=== PATIENT | male | born 1930 | race Caucasian/White ===

== ENCOUNTER 2018-03-03 12:52 | Emergency (ER) | payer OTHER ==
[~2018-03-03] VITALS: Ht 175.3 cm; Wt 77.1 kg
[2018-03-03] MEDS ORDERED: ASA81 MG (13:31)
[2018-03-03] MEDS ORDERED: TAMS0.4C (13:32)
[2018-03-03] MEDS ORDERED: VITAMINA (13:33)
[2018-03-03] MEDS ORDERED: ROSUVASTATIN CAL5 MG (13:33)
[2018-03-03] MEDS ORDERED: LISINOPRIL5 MG (13:34)
[2018-03-03] MEDS ORDERED: ESCITALOPRAM OXA5 MG (13:34)
[2018-03-03] MEDS ORDERED: AMLODIPINE BESI25 GM (13:35)
[2018-03-03] MEDS ORDERED: BTREX (13:36)
[2018-03-03] MEDS ORDERED: CLONAZEPAM1 M1 (13:36)
[2018-03-03] MEDS ORDERED: BENZONATATE100 MG (13:36)
== END 2018-03-03 16:17 | disposition home or self-care (01) ==
LOC: ER 12:52
DX: R60.0 Localized edema (principal); M79.621 Pain in right upper arm; R53.1 Weakness; R53.81 Other malaise; S42.491 Other displaced fracture of lower end of right humerus; W18.09XS Striking against other object with subsequent fall, sequela